=== PATIENT | female | born 1965 | race Caucasian/White ===

== ENCOUNTER 2020-10-05 15:42 | Inpatient (IN) | payer OTHER ==
[~2020-10-05] VITALS: Ht 172.7 cm; Wt 87.8 kg
[~2020-10-05 15:42] MED LIST: BETAXOLOL HCL10 MG PO
[2020-10-05] MEDS ORDERED: BETAMETHASONE D60 ML (15:53)
[2020-10-05] MEDS ORDERED: METRONIDAZOLE45 GM (15:53)
[2020-10-05] MEDS ORDERED: LOSARTAN POTASS50 MG (15:53)
[2020-10-05] MEDS ORDERED: ALL DAY ALL1 MG/1 ML (15:54)
[2020-10-05] MEDS ORDERED: CIPRO500 MG/5 M (15:54)
[2020-10-05] MEDS ORDERED: FLUCONAZOLE150 MG (15:55)
[2020-10-05] MEDS ORDERED: POLYSPORIN OI28.3 GM (15:55)
[2020-10-05] MEDS ORDERED: CEFDINIR300 MG (15:55)
== END 2020-10-12 20:21 | DRG 603 ==
LOC: ER 15:42 → MEDI 19:11 → MEDJ 10-06 09:44
PROVIDERS: ADMIT Internal Medicine; ATTEND Internal Medicine
PROC: 0HBMXZX Excision of Right Foot Skin, External Approach, Diagnostic (ICD-10-PCS; principal; 2020-10-06)
PROC: 8E0ZXY6 Isolation (ICD-10-PCS; 2020-10-06)
DX: L03.115 Cellulitis of right lower limb (principal); B01.9 Varicella without complication; L40.4 Guttate psoriasis; I10 Essential (primary) hypertension; Z20.822 Contact with and (suspected) exposure to COVID-19

== ENCOUNTER 2020-11-16 15:58 | Inpatient (IN) | payer OTHER ==
[~2020-11-16] VITALS: Ht 172.7 cm; Wt 84.4 kg
[~2020-11-16 15:58] MED LIST changes: +ALL DAY ALL1 MG/1 ML; +BETAMETHASONE D60 ML; +CEFDINIR300 MG; +CIPRO500 MG/5 M; +FLUCONAZOLE150 MG; +LOSARTAN POTASS50 MG; +METRONIDAZOLE45 GM; +POLYSPORIN OI28.3 GM
--- NOTE | 2020-11-16 16:27 | NUR ---
PATIENT IS RECIEVED SAYING THAT SHE HAS FORMED A RASH ON HER RIGHT LEG AND UP TO HER UNDERARMS WITH WHAT SHE SUSPECTS TO BE SHINGLES. PATIENT WAS HOSPITALIZED A WEEK AGO WITH CELULLITIS ON SAME LEG.
--- NOTE | 2020-11-16 21:34 | NUR ---
SE ORIENTA PTE SOBRE SANTOSH DE MUESTRAS LAS CUALES SE EXTRAEN BAJO MEDIDAS ASEPTICAS.SE NOTIFICA SONOGRAMA PENDIENTE VINCENZO SONOGRAFISTA DE TURNO INDICA NO SE REALIZA POR ER.
== END 2020-11-20 22:02 | disposition home or self-care (01) | DRG 601 ==
LOC: ER 15:58 → SURH 22:40
PROVIDERS: ADMIT Internal Medicine; ATTEND Internal Medicine
DX: N61.0 Mastitis without abscess (principal); L30.8 Other specified dermatitis; I10 Essential (primary) hypertension